=== PATIENT | female | born 1995 | race African-American/Black ===

== ENCOUNTER 2017-07-05 22:41 | Emergency (ER) | payer OTHER ==
[2017-07-05 22:51] VITALS: BP 115/72; PULSE 90; TEMP 98.5; BMI 18.2
--- NOTE | 2017-07-06 00:21 | PDOC ---
History of Present Illness - General Chief Complaint: Laceration Stated Complaint: RH LAC Time Seen by Provider: 07/05/17 22:56 - History of Present Illness Initial Comments: This otherwise healthy 22-year-old woman presents by ambulance from work where she sustained a laceration base of the right thumb. This occurred when she was washing glassware and a glass broke in her hand. Bleeding from laceration was persistent despite local pressure and EMS called. She denies lightheadedness/ weakness. She has no significant pain in the wound and denies numbness/ weakness of the thumb. Patient denies prolonged bleeding/easy bruising. No history of wound infection/resistant organism colonization or infection. History of HS2 infection Depo-Provera No known ALLERGIES Past History - Past Medical History Allergies/Adverse Reactions: Allergies Allergy/AdvReac Type Severity Reaction Status Date / Time No Known Allergies Allergy Unverified 07/05/17 22:48 Home Medications: Ambulatory Orders NK [No Known Home Medication] 07/05/17 Other medical history: DENIES - Suicide/Smoking/Psychosocial Hx Smoking History: Never smoked Review of Systems - Review of Systems Able to Perform ROS?: Yes Comments:: 12 point review of systems is negative except for what is noted in the history of present illness *Physical Exam - Vital Signs Last Vital Signs Temp Pulse Resp BP Pulse Ox 98.5 F 90 16 115/72 99 07/05/17 22:49 07/05/17 22:49 07/05/17 22:49 07/05/17 22:49 07/05/17 22:49 - Physical Exam Comments: GENERAL: Young adult female, alert and oriented 3, in no acute distress HEAD: Normal with no signs of trauma. EXTREMITIES: Right hand1.5 cm full-thickness laceration, palmar aspect of base of thumb, oozing/no pulsatile bleeding Distal motor/sensory functioning intact ; finger warm and dry with excellent capillary refill Remainder of the extremity exam is normal NEUROLOGICAL: Cranial nerves II through XII grossly intact. Normal speech. No focal neurological deficits. Procedures - Laceration/Wound Repair Right Proximal Volar 1st digit Wound Length: to 2.5 cm Wound Explored: no foreign body present Wound's Depth, Shape: irregular Irrigated w/ Saline: Yes Betadine Prep: No (Hibiclens/ethanol) Anesthesia: 1% Lidocaine Amount of Anesthetic (ccs): 2 Wound Repaired With: Sutures Suture Size/Type: 5:0 Number of Sutures: 3 Layer Closure: No Sterile Dressing Applied: Yes Splint Applied: No Progress: Area of the base of the right thumb prepped using Hibiclens/ethanol solution. 2 mL of 1% lidocaine infiltrated into the wound for local anesthesia. Wound thoroughly irrigated with 80 mL of sterile normal saline. Base of the wound extensively observedno evidence of foreign body palpated or seen. No evidence of tendon or vascular injury. Wound edges are slightly jagged but do not require debridement. Edges are closely approximated and closed with 3 interrupted sutures of 5-0 nylon. Bacitracin/sterile gauze followed by tube dressing applied. Patient tolerated procedure well. Progress Note - Progress Note Progress Note: 22-year-old woman, otherwise healthy, presents with laceration sustained at work : Glass broke as she was washing it. No evidence of foreign body on inspection. No evidence of tendon or vascular injury on inspection. Patient is accompanied by her mother. Mother states that the patient's order dispatcher had given tetanus prophylaxis booster at some time during the patient's midteens (this could be within the 5 to 10 year range). She will contact the order dispatcher to ascertain the exact date of most recent tetanus prophylaxis. Repair of wound as noted above. Patient will be discharged with instructions not to work for the next 2 days while wound is kept dry with original dressing intact. After the first 48 hours , dressing will be changed with protective dressing during the day/open at night. Patient was return here or see her doctor if the area appears to be infected. Sutures will be removed on July 11. *DC/Admit/Observation/Transfer Diagnosis at time of Disposition: Laceration of right thumb Qualifiers: Encounter type: initial encounter Damage to nail status: without damage Foreign body presence: without foreign body Qualified Code(s): S61.011A - Laceration without foreign body of right thumb without damage to nail, initial encounter - Discharge Dispostion Disposition: HOME Condition at time of disposition: Stable - Patient Instructions Printed Discharge Instructions: How to Care for a Laceration After Repair Additional Instructions: Elevate hand tonight Tylenol/Motrin/Aleve as needed for pain Contact order dispatcher to see when last tetanus booster was given Keep original dressing intact and dry as possible for 2 days After 2 days, protective dressing (Band-Aid plus bacitracin) during the day/ open at night No immersion until sutures are removed Return or see your doctor if area becomes more painful/swollen No work for the next 2 days Have sutures removed on July 11 - Post Discharge Activity Forms/Work/School Notes: Back to Work
== END 2017-07-06 00:25 | disposition home or self-care (01) ==
LOC: FER 22:41
PROC: 0HQFXZZ Repair Right Hand Skin, External Approach (ICD-10-PCS; principal; 2017-07-05)
DX: S61.011A Laceration without foreign body of right thumb without damage to nail, initial encounter (principal); W25.XXXA Contact with sharp glass, initial encounter; Y93.G1 Activity, food preparation and clean up; Y92.9 Unspecified place or not applicable; Y99.0 Civilian activity done for income or pay
CPT/HCPCS: 99282-25